=== PATIENT | male | born 1990 | race African-American/Black ===

== ENCOUNTER 2020-12-26 18:12 | Emergency (ER) | payer OTHER ==
[~2020-12-26] VITALS: Ht 188 cm; Wt 104.8 kg
[2020-12-26 19:51] VITALS: BP 130/74
[2020-12-26] MEDS ORDERED: LIDOCAINE (700MG/PATCH) PATCH. TD ONE (20:00)
[2020-12-26] MEDS ORDERED: KETOROLAC 15 MG/ML VIAL. IM ONE (20:00)
--- NOTE | 2020-12-26 20:02 | PHYS DOC ---
Past Medical History Additional Past Medical Histor: back pain Past Surgical History: No Surgical History General Adult EDM: Chief Complaint: BACK PAIN OR INJURY HPI: HPI: 30-year-old male with a long history of chronic right-sided back pain presents to the emergency department with acute on chronic back pain for the last several days with gradual onset not associate with any injury or trauma. He reports his pain is very similar to his chronic pain and he came to ER today to get pain relief. He received an epidural injection last week for his back pain with his back specialist which he has been seeing regularly for his back pain control. The patient denies urinary changes, recent weight loss, fever, saddle anesthesia, bowel or bladder incontinence, abdominal pain, syncope, weakness or numbness, chest pain, shortness of breath, or any other medical complaints. Also denies IV drug use, history of spinal surgery, history of cancer, or immunodeficiency history. Review of Systems: Review of Systems: ROS otherwise negative except for what was mentioned in HPI Heart Score: C/O Chest Pain: No Allergies: Allergies: Allergies Coded Allergies Type Severity Reaction Last Updated Verified No Known Drug Allergies 12/26/20 No Physical Exam: PE: Constitutional: No acute distress, non-toxic appearance. HENT: Atraumatic, bilateral external ears normal, nose normal. Eyes: PERRLA, EOMI, conjunctiva normal, no discharge. Neck: Normal range of motion, supple, nontender cervical spine, no stridor. Cardiovascular: Heart rate regular rhythm. 2+ radial pulses Skin: Warm, dry, no rash. Extremities: No tenderness, no cyanosis, ROM intact, no edema. Back: No point or midline T or L-spine tenderness, no palpable spasm, overlying skin is unremarkable, no CVA tenderness Neurologic: Alert and oriented X 3, 5/5 strength in lower extremities bilaterally, L3-S1 dermatomes are intact and equal bilaterally, no focal deficits noted. Non ataxic gait. GCS 15. Psychologic: Affect normal, judgment normal, mood normal. Current Patient Data: Vital Signs: Vital Signs Date Time Temp Pulse Resp B/P (MAP) Pulse Ox O2 Delivery O2 Flow Rate FiO2 12/26/20 19:51 98.1 56 18 130/74 (92) 100 Room Air 98.1 Course & Med Decision Making: Course & Med Decision Making Patient is driving home, he was given Toradol and a lidocaine patch here in the emergency department for back pain control, which is why he stated he came to the emergency department today. His pain today is consistent with his chronic pain. He was advised to follow-up with his neurological specialist as indicated. He had no complaints or red flag symptoms of back pain and his exam is relatively benign today. Departure Departure Impression: Primary Impression: Back pain Disposition: HOME / SELF CARE / HOMELESS Condition: STABLE Patient Instructions: Back Pain, Adult, [id number] Additional Instructions: You were seen in the emergency department for back pain. Your pain could be musculoskeletal in nature and could be from a pulled or strained muscle. The pain should improve with NSAID medications (ibuprofen, Aleve, etc.), stretching, and light activity. You may also use Tylenol for your back pain (no more than 3000 mg per day). Take as directed by instructions. Do not take NSAID medications if you have kidney disease. Do not take Tylenol if you have liver disease. If it does not improve, you should follow up with a primary care doctor. - Use stretching and strengthening exercises at least twice per day, continue to complete physical activity such as walking, and alternate ice and heat (ie heating pad) to the area of pain. - Return to the Emergency Department should your symptoms worsen, or should you develop a fever, change in bowel or bladder habits, weakness or numbness in your lower extremities, inability to walk, or any concern you feel warrants further evaluation. - Take Aleve or Ibuprofen, and Tylenol as needed for your pain. - You may use over the counter lidocaine patches as needed for pain. - Avoid taking narcotic medications for back pain. - Follow up with your doctor within 1-2 weeks if your symptoms are not improving. LELAND JEAN DO Dec 26, 2020 20:02
== END 2020-12-26 21:12 | disposition home or self-care (01) ==
LOC: ER 18:12
DX: M54.89 Other dorsalgia (principal); G89.29 Other chronic pain
CPT/HCPCS: 96372; 99283; J1885